=== PATIENT | male | born 1995 | race Two or more races ===

== ENCOUNTER 2019-07-04 18:10 | Emergency (ER) | payer OTHER ==
[~2019-07-04] VITALS: Ht 177.8 cm; Wt 127.0 kg
== END 2019-07-04 21:22 | disposition home or self-care (01) ==
LOC: ER 18:10
DX: J06.9 Acute upper respiratory infection, unspecified (principal); Z03.818 Encounter for observation for suspected exposure to other biological agents ruled out

== ENCOUNTER 2020-10-18 12:52 | Emergency (ER) | payer OTHER ==
[~2020-10-18] VITALS: Ht 177.8 cm; Wt 126.1 kg
[2020-10-18] MEDS ORDERED: LEVOFLOXACIN500 MG PO (22:47)
[2020-10-18] MEDS ORDERED: ENALAPRIL MALEAT5 MG PO (22:47)
[2020-10-18] MEDS ORDERED: BUTALB-ACETAMI1 EAC2 PO (22:47)
== END 2020-10-18 22:58 | disposition home or self-care (01) ==
LOC: ER 12:52
DX: R07.9 Chest pain, unspecified (principal); G43.909 Migraine, unspecified, not intractable, without status migrainosus; R42 Dizziness and giddiness

== ENCOUNTER 2024-07-03 10:01 | Emergency (ER) | payer OTHER ==
[~2024-07-03] VITALS: Ht 177.8 cm; Wt 122.0 kg
[~2024-07-03 10:01] MED LIST: BUTALB-ACETAMI1 EAC2 PO; ENALAPRIL MALEAT5 MG PO; LEVOFLOXACIN500 MG PO
[2024-07-03] MEDS ORDERED: KETOROLAC TROMETHAMINE 30 MG VIAL IV ONE (10:45)
[2024-07-03] MEDS ORDERED: ONDANSETRON HCL 2 MG/ML VIAL IV ONE (10:45)
[2024-07-03] MEDS ORDERED: FAMOtidine 10 MG/ML (4ML VIAL) IV ONE (10:45)
[2024-07-03] MEDS ORDERED: 0.9 % SODIUM CHLORIDE 1,000 ML IV ONE (10:45)
[2024-07-03] MEDS ORDERED: FAMOTIDINE/PF 20 MG/2 ML VIAL ONE (10:47)
[2024-07-03] MEDS ORDERED: KETOROLAC TROMETHAMINE 30 MG VIAL ONE (10:47)
[2024-07-03] MEDS ORDERED: ONDANSETRON HCL 2 MG/ML VIAL ONE (10:47)
[2024-07-03] MEDS ORDERED: DIATRIZOATE MEGLUMINE, SODIUM 30 ML BOTTLE ONE (10:54)
[2024-07-03 11:13] LABS: HEMATOCRIT 45.1 % (39.0-48.0); HEMOGLOBIN 15.1 g/dL (13-16.00); MEAN CELL VOLUME 82.3 fL (80.0-100.00); MEAN CORPUSCULAR HEMOGLOBIN 27.5 pg (27.00-32.0); MEAN CORPUSCULAR HGB CONC 33.5 g/dl (32.0-36.0); PLATELET COUNT 274 K/uL (150-450); RED BLOOD COUNT 5.48 M/uL (4.00-6.00); RED CELL DISTRIBUTION WIDTH 13.8 % (11.5-14.5)
[2024-07-03 11:35] LABS: INR 1.1; PARTIAL THROMBOPLASTIN TIME 27.7 SECONDS (22.0-34.0); PROTHROMBIN TIME 11.9 SECONDS (9.0-11.5)
[2024-07-03 13:42] LABS: PH,URINE 5.5 (5.0-8.0); URINE APPEARANCE Turbid; URINE BILIRRUBIN Negative (NEGATIVE); URINE BLOOD Negative; URINE COLOR Dark Yellow; URINE GLUCOSE Negative (NEGATIVE); URINE KETONE Trace (NEGATIVE); URINE LEUKOCYTE Negative; URINE NITRATE Negative; URINE PROTEIN Trace (NEGATIVE); URINE UROBILINOGEN 0.2 E.U./dl
[2024-07-03 13:46] LABS: URINE EPITHELIAL CELLS 5.6 uL (0.0-38.8); URINE WBC 9.4 uL (0.0-23.2)
[2024-07-03 13:55] LABS: URINE CRYSTALS MANY /HPF
[2024-07-03 14:07] LABS: ALBUMIN 3.5 gm/dL (3.4-5.0); BILIRUBIN TOTAL 0.47 mg/dL (0.3-1.2); CALCIUM 8.8 mg/dL (8.5-10.1); CREATININE SERUM 0.8 mg/dL (0.70-1.30); GFR 115.1; GLOBULINA 4.4 G/DL (2.4-3.5); POTASSIUM 3.8 mEq/L (3.5-5.1); TOTAL PROTEIN 7.9 gm/dL (6.4-8.2)
[2024-07-03] MEDS ORDERED: DICLOFENAC SODI75 MG PO (17:00)
[2024-07-03] MEDS ORDERED: ANALPRAM HC 2.530 GM RECTAL (17:00)
== END 2024-07-03 17:04 | disposition home or self-care (01) ==
LOC: ER 10:02
PROVIDERS: General Practice
DX: R10.31 Right lower quadrant pain (principal); K62.5 Hemorrhage of anus and rectum; R19.7 Diarrhea, unspecified; R11.10 Vomiting, unspecified; Z91.041 Radiographic dye allergy status
CPT/HCPCS: 36415; 74177; Q9965